=== PATIENT | female | born 1950 | race Caucasian/White ===

== ENCOUNTER 2019-08-09 23:17 | Emergency (ER) | payer BC, MEDICAID ==
[~2019-08-09] VITALS: Ht 162.6 cm; Wt 159.1 kg
[~2019-08-09 23:17] MED LIST: ATEN-169 PO; ATEN25TA PO; CLON-371 PO; CLON-527 PO; PARO-62 PO; TRAM50TA2 PO
[2019-08-09 23:36] LABS: BASOPHILS # (AUTO) 0.1 X10'3 (0-0.2); EOSINOPHILS # (AUTO) 0.4 X10'3 (0-0.9); EOSINOPHILS % (AUTO) 3.6 % (0-6); HEMOGLOBIN 13.6 g/dl (12.0-16.0); LYMPHOCYTES # (AUTO) 2.9 X10'3 (1.1-4.8); LYMPHOCYTES % (AUTO) 29.5 % (21-51); MEAN CORPUSCULAR HEMOGLOBIN 31.1 PG (27.0-31.0); MEAN CORPUSCULAR HGB CONC 33.1 g/dL (33.0-36.5); MEAN PLATELET VOLUME 8.2 FL (7.4-10.4); MONOCYTES # (AUTO) 0.8 X10'3 (0-0.9); MONOCYTES % (AUTO) 8.5 % (2-12); NEUTROPHILS # (AUTO) 5.6 X10'3 (1.8-7.7); NEUTROPHILS % (AUTO) 57.4 % (42-75); PLATELET COUNT 253 X10'3 (140-440); RED BLOOD COUNT 4.36 X10'6 (4.20-5.60); RED CELL DISTRIBUTION WIDTH 13.6 % (11.5-14.5); WHITE BLOOD COUNT 9.8 X10'3 (4.5-11.0)
[2019-08-09] MEDS ORDERED: mag hydrox/Alum hydrox/simeth 30ml oral suspension PO ONE (23:40)
[2019-08-09] MEDS ORDERED: ondansetron 4mg rapidly disintigrating tab PO ONE (23:40)
[2019-08-09] MEDS ORDERED: LIDOcaine Viscous 15ml cup MM ONE (23:40)
[2019-08-09] MEDS ORDERED: famotidine 20mg tablet PO ONE (23:40)
[2019-08-09] MEDS ORDERED: ketorolac trometh. 30mg/ml inj. IV ONE (23:45)
[2019-08-09] MEDS ORDERED: orphenadrine citrate 60mg/2ml inj. IM ONE (23:45)
[2019-08-09 23:55] LABS: ALANINE AMINOTRANSFERASE 22 U/L (12-78); ALBUMIN/GLOBULIN RATIO 0.8 (1.1-1.5); ALKALINE PHOSPHATASE 79 IU/L (46-116); ANION GAP 4 (8-16); ASPARTATE AMINO TRANSFERASE 13 U/L (10-37); BILIRUBIN,TOTAL 0.1 MG/DL (0.1-1.0); BLOOD UREA NITROGEN 12 MG/DL (7-18); BUN/CREATININE RATIO 10.2 (6.6-38.0); CALCIUM 8.6 MG/DL (8.5-10.1); CHLORIDE 109 MMOL/L (99-107); CREATININE 1.18 MG/DL (0.40-0.90); GLUCOSE 141 MG/DL (70-104); POTASSIUM 4.4 MMOL/L (3.5-5.1); SODIUM 142 MMOL/L (135-145); TOTAL CARBON DIOXIDE 28.8 MMOL/L (24-32); eGFR 45 ML/MIN
[2019-08-09 23:57] LABS: LIPASE 69 U/L (73-393); TROPONIN I < 0.04 NG/ML (0.0-0.05)
[2019-08-10] MEDS ORDERED: pantoprazole 40 MG vial IV ONE (00:50)
--- NOTE | 2019-08-10 03:06 | NUR ---
Pt. called friend who states he'll be on his way to [facility] operator pt.
[2019-08-10 03:07] VITALS: BP 151/92
[2019-08-10] MEDS ORDERED: CYCL-1 PO (03:07)
[2019-08-10] MEDS ORDERED: HYDR-3965 PO (03:07)
[2019-08-10] MEDS ORDERED: ONDA8TAB6 PO (03:07)
--- NOTE | 2019-08-10 04:11 | NUR ---
Multiple calls made to "Hemanth" with no success.
--- NOTE | 2019-08-10 05:19 | NUR ---
More attempts made to reach "Hemanth" with no success. Pt. apparently lives with this friend and he has the house gaytan. Pt. is also unable to ambulate any more than a few steps. She uses a walker at home. Pt. has no other help because her sister is currently hospitalized also.
--- NOTE | 2019-08-10 05:45 | NUR ---
Spoke with Hemanth who states that he is within 5 mins away from the hospital.
== END 2019-08-10 05:57 | disposition home or self-care (01) ==
LOC: ER 23:18
DX: M54.9 Dorsalgia, unspecified (principal); R07.89 Other chest pain; I10 Essential (primary) hypertension; G89.29 Other chronic pain; F41.9 Anxiety disorder, unspecified; Z88.0 Allergy status to penicillin; Z88.5 Allergy status to narcotic agent; Z88.8 Allergy status to other drugs, medicaments and biological substances; Z79.899 Other long term (current) drug therapy
CPT/HCPCS: 36415; 74176; 80053; 83690; 84484; 85025; 93005; 96372; 96374; 96375; 99285; C9113; J1885; J2360

== ENCOUNTER 2020-08-28 23:16 | Emergency (ER) | payer BC, MEDICAID ==
[~2020-08-28] VITALS: Ht 162.6 cm; Wt 170.0 kg
[~2020-08-28 23:16] MED LIST changes: +CYCL-1 PO; +ONDA8TAB6 PO
[2020-08-28 23:33] VITALS: BP 156/65
== END 2020-08-29 00:22 | disposition home or self-care (01) ==
LOC: ER 23:17
DX: L84 Corns and callosities (principal); I10 Essential (primary) hypertension; G89.29 Other chronic pain; F41.9 Anxiety disorder, unspecified; Z88.0 Allergy status to penicillin; Z88.5 Allergy status to narcotic agent; Z88.1 Allergy status to other antibiotic agents; Z79.899 Other long term (current) drug therapy
CPT/HCPCS: 99283